=== PATIENT | male | born 1980 | race African-American/Black ===

== ENCOUNTER 2017-10-11 22:44 | Inpatient (IN) | payer OTHER ==
[~2017-10-11] VITALS: Ht 188 cm; Wt 117.9 kg
[2017-10-11] MEDS ORDERED: ONDANSETRON HCL 4MG/2ML VIAL IV STA (23:42)
[2017-10-11] MEDS ORDERED: MORPHINE SULFATE 4 MG/ML CPJ (NOT FOR IM USE) IV STA (23:42)
[2017-10-11] MEDS ORDERED: SODIUM CHLORIDE 0.9% 1,000 ML IV ONE (23:42)
[2017-10-11] MEDS ORDERED: FAMOTIDINE 20MG/2ML VIAL IV STA (23:42)
[2017-10-11] MEDS ORDERED: DIATR MEGLU/DIATRIZOATE SOLN 30ML ONE (23:56)
[2017-10-12] VITALS (14 sets, daily range): BP systolic 61–129; BP diastolic 41–89
[2017-10-12 00:06] LABS: HEMATOCRIT. 53.5 % (42.0-52.0); HEMOGLOBIN. 18.3 g/dL (14.0-18.0); MEAN CORPUSCULAR HEMOGLOBIN 35.3 pg (28.0-32.0); MEAN CORPUSCULAR VOLUME 103.3 fL (80.0-94.0); MEAN PLATELET VOLUME 8.5 fl (7.4-10.4); PLATELET 230 x1000/uL (130-400); RED BLOOD CELL COUNT 5.18 mill/uL (4.7-6.1); RED CELL DISTRIBUTION WIDTH 13.9 % (11.6-14.6)
[2017-10-12 00:10] LABS: INR 1.3; PROTHROMBIN TIME 13.8 sec (9.4-11.6)
[2017-10-12 00:21] LABS: CARBON DIOXIDE 33 mEq/L (21-32); CHLORIDE 92 mEq/L (98-107); ETHANOL BLOOD < 10 mg/dL; TROPONIN I 0.06 ng/mL (0.00-0.04)
[2017-10-12 00:36] LABS: PLATELET ESTIMATE NORMAL
[2017-10-12] MEDS ORDERED: MORPHINE SULFATE 4 MG/ML CPJ (NOT FOR IM USE) IV ONE (00:45)
[2017-10-12] MEDS ORDERED: SODIUM CHLORIDE 0.9% 1000ML BAG (SEPSIS BOLUS) IV ONE (01:15)
[2017-10-12] MEDS ORDERED: PIPERACILLIN/TAZ 3.375G PREMIX 50 ML IV ONE (01:15)
[2017-10-12] MEDS ORDERED: METRONIDAZOLE 500 MG PREMIX 100 ML IV ONE (01:15)
[2017-10-12] MEDS ORDERED: LEVOFLOXACIN 750MG PREMIX 150 ML IV ONE (01:15)
[2017-10-12] MEDS ORDERED: METOCLOPRAMIDE HCL 10MG/2ML VIAL IV ONE (03:15)
[2017-10-12] MEDS ORDERED: FENTANYL CITRATE/PF 50MCG/ML 2ML VIAL IV ONE (03:15)
[2017-10-12] MEDS ORDERED: ONDANSETRON HCL 4MG/2ML VIAL IV ONE (03:45)
[2017-10-12] MEDS ORDERED: SODIUM CHLORIDE 0.9% 1,000 ML IV SCH ×2 (04:03→13:15)
[2017-10-12] MEDS ORDERED: PIPERACILLIN/TAZ 3.375G PREMIX 50 ML IV SCH ×2 (05:50→14:30)
[2017-10-12] MEDS ORDERED: DEXT 5%/0.45% NACL 1000ML 1,000 ML IV SCH (08:13)
[2017-10-12] MEDS ORDERED: LORAZEPAM 2MG/ML CPJ IV PRN (08:15)
[2017-10-12] MEDS ORDERED: MORPHINE SULFATE 2 MG/ML CPJ (NOT FOR IM USE) IV PRN ×3 (08:15→10:30)
[2017-10-12] MEDS ORDERED: DIPHENHYDRAMINE 50MG/ML VIAL IV PRN ×2 (08:15→09:45)
[2017-10-12] MEDS ORDERED: ACETAMINOPHEN 650MG SUPP PR PRN ×2 (08:15→09:45)
[2017-10-12] MEDS ORDERED: ONDANSETRON HCL 4MG/2ML VIAL IV PRN ×6 (08:15→11:45)
[2017-10-12] MEDS ORDERED: NA PHOS,M-B/NA PHOS,DI-BA ENEMA 118ML PR PRN ×2 (08:15→09:45)
[2017-10-12] MEDS ORDERED: IPRATROPIUM/ALBUTEROL 0.5-3(2.5)MG/3ML NEB INH PRN ×2 (08:15→09:45)
[2017-10-12] MEDS ORDERED: MORPHINE SULFATE 4 MG/ML CPJ (NOT FOR IM USE) IV PRN (08:45)
[2017-10-12] MEDS ORDERED: PANTOPRAZOLE SODIUM 40 MG/VIAL IV SCH ×2 (09:00→13:15)
[2017-10-12] MEDS ORDERED: BUPIVACAINE HCL 0.5% (5MG/ML) 50ML ONE (10:06)
[2017-10-12] MEDS ORDERED: SKIN ADHESIVE 0.7 GM EA TOP ONE (10:07)
[2017-10-12] MEDS ORDERED: DEXT 5%/0.45% NACL KCL 20MEQ/L 1,000 ML IV SCH ×2 (10:14→14:00)
[2017-10-12] MEDS ORDERED: CEFAZOLIN 1000MG PREMIX 50 ML IV SCH ×2 (10:15→14:00)
[2017-10-12] MEDS ORDERED: FENTANYL CITRATE/PF 50MCG/ML 2ML VIAL ONE (10:18)
[2017-10-12] MEDS ORDERED: MIDAZOLAM HCL 2 MG/2 ML VIAL ONE (10:18)
[2017-10-12] MEDS ORDERED: PHENYLEPHRINE HCL 10 MG/ML 1ML (IV VIAL) IV ONE (10:42)
[2017-10-12] MEDS ORDERED: HYDROMORPHONE HCL/PF 2MG/ML (OR) ONE (11:19)
[2017-10-12] MEDS ORDERED: DEXAMETHASONE 4MG/ML 1ML VIAL ONE (11:20)
[2017-10-12] MEDS ORDERED: SUCCINYLCHOLINE CHLORIDE 200MG/10ML VIAL IV ONE (11:20)
[2017-10-12] MEDS ORDERED: ROCURONIUM BROMIDE 10MG/ML VIAL 5ML IV ONE (11:20)
[2017-10-12] MEDS ORDERED: PROPOFOL 200MG/20ML VIAL IV ONE (11:20)
[2017-10-12] MEDS ORDERED: LIDOCAINE HCL/PF 1% 10 MG/ML 5ML VIAL ONE (11:20)
[2017-10-12] MEDS ORDERED: EPHEDRINE SULFATE 50MG/ML VIAL ONE (11:21)
[2017-10-12] MEDS ORDERED: SODIUM CHLORIDE 0.9% 10ML VIAL ONE ×2 (11:21→11:49)
[2017-10-12] MEDS ORDERED: VECURONIUM BROMIDE 10 MG/VIAL IV ONE ×2 (11:21→11:49)
[2017-10-12] MEDS ORDERED: HYDROMORPHONE HCL/PF 2MG/ML CPJ IV PRN ×2 (11:30→11:45)
[2017-10-12] MEDS ORDERED: LABETALOL 5MG/ML SYR 20 MG/4 ML SYRINGE IV PRN ×2 (11:30→11:45)
[2017-10-12] MEDS ORDERED: MEPERIDINE HCL/PF 25MG/ML CPJ IV PRN ×2 (11:30→11:45)
[2017-10-12] MEDS ORDERED: IPRATROPIUM BROMIDE (0.02%) 0.5MG/2.5ML NEB HHN SCH (13:15)
[2017-10-12] MEDS ORDERED: PROPOFOL 10MG/ML 100ML 100 ML IV PRN (13:15)
[2017-10-12] MEDS ORDERED: PHENYLEPHRINE 10 MG in DEXT 5% WATER 249 ML IV PRN (13:15)
[2017-10-12] MEDS ORDERED: DILTIAZEM HCL 5MG/ML 5ML VIAL IV SCH (13:20)
[2017-10-12] MEDS ORDERED: SODIUM BICARBONATE 8.4% 1 MEQ/ML 50ML SYR IV SCH (13:20)
[2017-10-12 13:32] LABS: BG BASE EXCESS -0.5 mmol/L (-2.0-2.0); BG CARBOXYHEMOGLOBIN 1.1 % (0.5-1.5); BG DEOXYHEMOGLOBIN 25.3 % (0.0-5.0); BG FRACTION INSPIRED OXYGEN 100; BG HCO3 ACT 27.2 mmol/L (22.0-26.0); BG METHEMOGLOBIN 0.4 % (0.0-1.5); BG OXYGEN SATURATION 74.3 % (92.0-98.5); BG OXYHEMOGLOBIN 73.2 % (94.0-97.0); BG PCO2 56.8 mmHg (35.0-45.0); BG PH 7.298 (7.350-7.450); BG PO2 46.2 mmHg (75.0-100.0); BG SAMPLE SITE RIGHT RADIAL; BG TIDAL VOLUME(mL) 650 mL; BG TOTAL HEMOGLOBIN 15.5 g/dL (12.0-18.0); BG VENT MODE VENT - A/C; BG VENT RATE 18 set
[2017-10-12] MEDS ORDERED: DILTIAZEM HCL 5MG/ML 5ML VIAL IV ONE (13:34)
[2017-10-12] MEDS ORDERED: ALBUMIN HUMAN 12.5G/250ML (5%) IV SCH (14:00)
[2017-10-12] MEDS ORDERED: PHENYLEPHRINE 40 MG in DEXT 5% WATER 249 ML IV PRN (14:18)
[2017-10-12] MEDS ORDERED: DILTIAZEM HCL 125 MG in SODIUM CHLORIDE 0.9% 100 ML IV PRN (14:30)
[2017-10-12] MEDS ORDERED: PHENYLEPHRINE 40MG in DEXT 5% WATER 250ML (QUADRUPLE CONC) IV PRN (14:30)
[2017-10-12] MEDS ORDERED: ALBUMIN HUMAN 12.5G/250ML (5%) IV PRN (14:45)
[2017-10-12] MEDS ORDERED: VANCOMYCIN 1,250 MG in SODIUM CHLORIDE 0.9% 250 ML IV SCH (15:00)
[2017-10-12] MEDS ORDERED: SODIUM CHLORIDE 0.9% 1,000 ML IV ONE (15:00)
[2017-10-12 15:06] LABS: HEMATOCRIT. 37.9 % (42.0-52.0); MEAN CORPUSCULAR HEMOGLOBIN 35.5 pg (28.0-32.0); MEAN CORPUSCULAR VOLUME 107.1 fL (80.0-94.0); MEAN PLATELET VOLUME 8.7 fl (7.4-10.4); PLATELET 145 x1000/uL (130-400); RED BLOOD CELL COUNT 3.54 mill/uL (4.7-6.1); RED CELL DISTRIBUTION WIDTH 13.9 % (11.6-14.6)
[2017-10-12 15:11] LABS: HEMOGLOBIN. 12.6 g/dL (14.0-18.0)
[2017-10-12 15:20] LABS: BG BASE EXCESS -6.9 mmol/L (-2.0-2.0); BG CARBOXYHEMOGLOBIN 0.5 % (0.5-1.5); BG DEOXYHEMOGLOBIN 3.1 % (0.0-5.0); BG FRACTION INSPIRED OXYGEN 100; BG HCO3 ACT 22.1 mmol/L (22.0-26.0); BG METHEMOGLOBIN 0.3 % (0.0-1.5); BG OXYGEN SATURATION 96.9 % (92.0-98.5); BG OXYHEMOGLOBIN 96.1 % (94.0-97.0); BG PCO2 61.5 mmHg (35.0-45.0); BG PH 7.174 (7.350-7.450); BG PO2 114.5 mmHg (75.0-100.0); BG SAMPLE SITE RIGHT RADIAL; BG TIDAL VOLUME(mL) 600 mL; BG TOTAL HEMOGLOBIN 12.1 g/dL (12.0-18.0); BG VENT MODE VENT - A/C; BG VENT RATE 20 set
[2017-10-12 15:36] LABS: CHLORIDE 102 mEq/L (98-107)
[2017-10-12 15:45] LABS: CARBON DIOXIDE 28 mEq/L (21-32)
[2017-10-12] MEDS ORDERED: SODIUM BICARBONATE 7.5% 0.9 MEQ/ML 50ML SYR IV ONE (16:00)
[2017-10-12] MEDS ORDERED: CALCIUM CHLORIDE 1GM/10ML SYR IV ONE (16:00)
[2017-10-12] MEDS ORDERED: EPINEPHRINE 0.1MG/ML (1:10,000) 10ML SYR ONE (16:00)
[2017-10-12 16:10] LABS: NUCLEATED RED BLOOD CELLS 1 /100 WBC; PLATELET ESTIMATE NORMAL
[2017-10-12 16:48] LABS: D-DIMER 3.26 mg/L FEU (<0.50); INR 1.4; PARTIAL THROMBOPLASTIN TIME 30.1 sec (23.4-31.0); PROTHROMBIN TIME 14.4 sec (9.4-11.6)
[2017-10-13] MEDS ORDERED: ENOXAPARIN 40MG/0.4ML SYR SUBCUT SCH ×2 (09:00)
== END 2017-10-12 16:01 | disposition expired | DRG 353 ==
LOC: ER 22:44 → MICUSO 10-12 04:05 → EDBEDREQ 10-12 06:38 → EDBEDREQSVC 10-12 06:40 → ER 10-12 09:40
PROVIDERS: ADMIT Internal Medicine; ATTEND Internal Medicine
PROC: 5A12012 Performance of Cardiac Output, Single, Manual (ICD-10-PCS; 2017-10-12)
PROC: 05H533Z Insertion of Infusion Device into Right Subclavian Vein, Percutaneous Approach (ICD-10-PCS; 2017-10-12)
PROC: B546ZZA Ultrasonography of Right Subclavian Vein, Guidance (ICD-10-PCS; 2017-10-12)
PROC: 0BH17EZ Insertion of Endotracheal Airway into Trachea, Via Natural or Artificial Opening (ICD-10-PCS; 2017-10-12)
PROC: 5A1935Z Respiratory Ventilation, Less than 24 Consecutive Hours (ICD-10-PCS; 2017-10-12)
PROC: 0WUF0JZ Supplement Abdominal Wall with Synthetic Substitute, Open Approach (ICD-10-PCS; principal; 2017-10-12 10:00)
DX: K43.0 Incisional hernia with obstruction, without gangrene (principal); J69.0 Pneumonitis due to inhalation of food and vomit; I46.9 Cardiac arrest, cause unspecified; J96.01 Acute respiratory failure with hypoxia; R65.21 Severe sepsis with septic shock; I47.1 Supraventricular tachycardia; N17.9 Acute kidney failure, unspecified; R57.9 Shock, unspecified; E86.1 Hypovolemia; I11.9 Hypertensive heart disease without heart failure; E87.6 Hypokalemia; F17.210 Nicotine dependence, cigarettes, uncomplicated; R79.89 Other specified abnormal findings of blood chemistry; E66.9 Obesity, unspecified; Z68.33 Body mass index [BMI] 33.0-33.9, adult
CPT/HCPCS: 36415; 36569; 36600; 71045; 74176; 76937; 80053; 82375; 82805; 83036; 83605; 83690; 83880; 84484; 85025; 85379; 85384; 85610; 85730; 87040; 93005; 93306; 94002; 96361; 96365; 96375; 99291; A4216; C1725; C1769; C1781; G0482; J0171; J0330; J0690; J1100; J1170; J1956; J2060; J2250; J2270; J2370; J2405; J2543; J2704; J3010; J3370; J3490; J7030; J7050; J7060; P9041; Q9963; A4315